=== PATIENT | female | born 1960 | race Caucasian/White ===

== ENCOUNTER 2019-04-08 21:09 | Emergency (ER) | payer MEDICAID, OTHER ==
[~2019-04-08] VITALS: Ht 180.3 cm; Wt 104.3 kg
[2019-04-08 22:10] VITALS: BP 135/72
== END 2019-04-09 06:25 | disposition home or self-care (01) ==
LOC: ER 21:15
DX: S92.912A Unspecified fracture of left toe(s), initial encounter for closed fracture (principal); W22.8XXA Striking against or struck by other objects, initial encounter; Y93.D1 Activity, knitting and crocheting; Y92.89 Other specified places as the place of occurrence of the external cause; Y99.8 Other external cause status
CPT/HCPCS: 29515; 73630